=== PATIENT | female | born 1950 | race Caucasian/White ===

== ENCOUNTER 2017-03-12 22:23 | Emergency (ER) | payer OTHER ==
[~2017-03-12] VITALS: Ht 154.9 cm; Wt 73.0 kg
[2017-03-12 23:21] VITALS: BP 154/88
== END 2017-03-13 00:01 | disposition home or self-care (01) ==
LOC: ED 23:30
DX: S06.0X0A Concussion without loss of consciousness, initial encounter (principal); S00.01XA Abrasion of scalp, initial encounter; Y04.0XXA Assault by unarmed brawl or fight, initial encounter; Y93.89 Activity, other specified; Y92.89 Other specified places as the place of occurrence of the external cause; Y99.2 Volunteer activity
CPT/HCPCS: 70450; 72125; 93005; 99284